=== PATIENT | female | born 1985 | race Hispanic/Latino ===

== ENCOUNTER 2017-05-03 19:08 | Emergency (ER) | payer MEDICAID, OTHER ==
[2017-05-03 19:38] LABS: #Eosinphils 0.1 thou/uL (0.0-0.7); #Lymphocytes 1.9 thou/uL (1.20-3.40); #Monocytes 0.4 thou/uL (0.11-0.59); #Neutrophils 6.2 thou/uL (1.40-6.50); %Basophils 0.5 % (0.0-1.0); %Eosinophils 1.7 % (0.0-10.0); %Lymphocytes 21.5 % (21.0-51.0); Hematocrit 34.4 % (36.0-47.0); Red Blood Cell (RBC) Count 3.85 mill/uL (4.20-5.40); White Blood Cell (WBC) Count 8.6 thou/uL (4.8-10.8)
[2017-05-03 19:39] LABS: Bilirubin Negative (Negative); Blood, Urine Negative (Negative); Glucose, Urine (Dipstick) Negative (Negative); Ketone, Urine Negative (Negative); Nitrite Negative (Negative); Protein, Urine (Dipstick) Negative (Neg-Trace); Urobilinogen 0.2 mg/dL (0.2-1.0)
[2017-05-03 20:03] LABS: ALT (SGPT) 25 U/L (8-55); AST (SGOT) 18 U/L (5-34); Alkaline Phosphatase 78 U/L (40-150); Anion Gap 12 mmol/L (10-20); BUN (Urea Nitrogen) 6 mg/dL (7.0-18.7); Bilirubin, Total 0.2 mg/dL (0.2-1.2); Calc. Creatinine Clearance 0 mL/min (70-130); Calcium 9.9 mg/dL (7.8-10.44); Carbon Dioxide 24 mmol/L (22-29); Chloride 103 mmol/L (98-107); Estimated GFR-MDRD Greater than 90; Globulin 3.6 g/dL (2.4-3.5); Protein, Total 7.3 g/dL (6.0-8.3)
--- NOTE | 2017-05-03 21:50 | ULT ---
OBSTETRIC ULTRASOUND: 05/03/17 INDICATION: History of pelvic cramping without bleeding. FINDINGS: There is a single live intrauterine gestation in transverse presentation with the head to the materi al left. The placenta is anterior in location without evidence of previa. ALBERT level appears within n ormal limits. heart rate is noted at 150 beats per minute. Estimated weight is 229 grams plus or minus 34 grams. Estimated due date by ultrasound is 10/04/17 with an estimated gestational ag e of 18 weeks and 0 days. The visualized aspects of the head appear within normal limits. A fo ur chamber heart was not well seen. the kidneys appeared within normal limits. stomach was wit hin normal limits. The bladder, cord insertion and visualized spine appear within normal limits. The re is a three vessel cord demonstrated. IMPRESSION: 1. A single live intrauterine gestation. 2. Some limitations due to the survey. Four chamber heart was not well seen. Lips and nos e were not well seen. Followup examination in one to two weeks to fully document the survey is recommended. POS: YOANDY
--- NOTE | 2017-05-03 23:12 | ULT ---
RIGHT UPPER QUADRANT ULTRASOUND 05/03/17 INDICATION: Abdominal pain after eating. COMPARISON: None. FINDINGS: No focal hepatic lesion is evident. There is sludge with stones within the gallbladder. No sonograph ic Diallo's sign reported. Common bile duct measures 3 mm. The pancreas is obscured. Right kidney me asures 10.5 cm. IMPRESSION: Cholelithiasis with gallbladder sludge. No sonographic evidence of acute cholecystitis. POS: H
== END 2017-05-03 23:44 | disposition home or self-care (01) ==
LOC: ERS 19:08
DX: O99.612 Diseases of the digestive system complicating pregnancy, second trimester (principal); K80.20 Calculus of gallbladder without cholecystitis without obstruction; Z3A.18 18 weeks gestation of pregnancy
CPT/HCPCS: 36415; 76705; 76856; 80053; 81003; 84702; 85025; 93976